=== PATIENT | female | born 1945 | race Caucasian/White ===

== ENCOUNTER 2018-12-20 19:31 | Inpatient (IN) | payer OTHER ==
[~2018-12-20] VITALS: Ht 160 cm; Wt 95.3 kg
[2018-12-20 19:40] VITALS: BP 155/59
[2018-12-20 20:00] LABS: ABSOLUTE NEUTROPHILS 13.1 thou/uL (1.4-8.2); BASOPHILS 0.8 % (0.0-2.0); EOSINOPHILS 2.5 % (0.0-3.0); HEMOGLOBIN 13.6 gm/dL (12.0-15.0); MCH 29.2 pg (26.0-34.0); MCHC 34.1 g/dL (28.0-37.0); MCV 85.7 fL (80.0-100.0); MONOCYTES 5.1 % (1.0-8.0); PLATELET COUNT 341 thou/uL (150-400); POLYS 77.6 % (36.0-66.0); RBC 4.67 mil/uL (4.20-5.00); RDW 14.3 % (10.5-14.5); WBC 16.9 thou/uL (4.0-11.0)
[2018-12-20 20:31] LABS: ANION GAP 9 mmol/L (7-16); BUN 16 mg/dL (7-18); CALCIUM 8.5 mg/dL (8.5-10.1); CHLORIDE 101 mmol/L (98-107); CO2 28 mmol/L (21-32); CREATININE 0.9 mg/dL (0.6-1.0); GLUCOSE 129 mg/dL (74-106); POTASSIUM 3.6 mmol/L (3.5-5.1); SODIUM 138 mmol/L (136-145)
[2018-12-20 20:40] LABS: ALBUMIN 3.1 g/dL (3.4-5.0); SGOT 20 U/L (15-37); SGPT 23 U/L (30-65); TOTAL BILIRUBIN 0.3 mg/dL (<0.1-1.0); TOTAL PROTEIN 6.8 g/dL (6.4-8.2); TROPONIN-I <0.06 ng/mL (<0.06)
[2018-12-20] MEDS ORDERED: SYNTHROID175 MCG PO (20:42)
[2018-12-20] MEDS ORDERED: PRINIVIL20 MG PO (20:43)
[2018-12-20] MEDS ORDERED: OMEPRAZOLE40 MG PO (20:43)
[2018-12-20] MEDS ORDERED: CYMBALTA30 MG PO (20:44)
[2018-12-20] MEDS ORDERED: TOPROL XL25 MG PO (20:44)
[2018-12-20] MEDS ORDERED: CARDIZEM30 MG PO (20:44)
[2018-12-20] MEDS ORDERED: MAXZIDE-25 MG1 EACH PO (20:45)
[2018-12-20] MEDS ORDERED: ALLOPURINOL 10100 M1 PO (20:45)
[2018-12-20] MEDS ORDERED: FENOFIBRATE160 MG PO (20:46)
[2018-12-20] MEDS ORDERED: MYRBETRIQ50 MG PO (20:46)
[2018-12-20] MEDS ORDERED: TRAMADOL 50 MG50 MG PO (20:47)
[2018-12-20] MEDS ORDERED: TYLENOL EXTRA500 MG PO (20:47)
[2018-12-20] MEDS ORDERED: FISH OIL 1,001000 M2 PO (20:48)
[2018-12-20] MEDS ORDERED: ASPIR 8181 MG PO (20:48)
[2018-12-20] MEDS ORDERED: TURMERIC500 M2 PO (20:50)
[2018-12-20] MEDS ORDERED: PRENATAL PLUS1 EAC5 PO (20:50)
[2018-12-20] MEDS ORDERED: ALLEGRA PO (20:51)
[2018-12-20] MEDS ORDERED: CINNAMON500 MG PO (20:51)
[2018-12-20 21:40] VITALS: BP 139/69
[2018-12-20 22:18] VITALS: BP 129/57
[2018-12-20 22:45] VITALS: BP 125/69
[2018-12-20 23:01] LABS: CHOLESTEROL 176 mg/dL (<200); HDL CHOLESTEROL 47 mg/dL (>40); LDL CHOLESTEROL 92 mg/dL (<100); TC:HDL 3.7 Ratio (Not establshd); TRIGLYCERIDE 185 mg/dL (<150); VLDL 37 mg/dL (<40)
[2018-12-20 23:02] LABS: SERUM ASSESSMENT Clear
[2018-12-21] VITALS: BP 114/51
[2018-12-21] MEDS ORDERED: CALCIUM 600 +1 EAC1 PO (00:21)
[2018-12-21 02:28] LABS: HEMOGLOBIN 12.6 gm/dL (12.0-15.0); MCH 27.7 pg (26.0-34.0); MCHC 32.2 g/dL (28.0-37.0); RBC 4.54 mil/uL (4.20-5.00); RDW 14.6 % (10.5-14.5); WBC 15.5 thou/uL (4.0-11.0)
[2018-12-21 02:36] LABS: ANION GAP 7 mmol/L (7-16); BUN 14 mg/dL (7-18); CALCIUM 8.7 mg/dL (8.5-10.1); CHLORIDE 101 mmol/L (98-107); CO2 29 mmol/L (21-32); CREATININE 0.8 mg/dL (0.6-1.0); GLUCOSE 110 mg/dL (74-106); POTASSIUM 3.6 mmol/L (3.5-5.1); SODIUM 137 mmol/L (136-145)
[2018-12-21 02:44] LABS: TROPONIN-I <0.06 ng/mL (<0.06)
[2018-12-21 03:52] VITALS: BP 113/60
--- NOTE | 2018-12-21 04:47 | NUR ---
PT. ARRIVED AT FLOOR AROUND 23:00; AOX4; C/O CHEST PAIN RADIATING TOWARD THE BACK; 08/30; VS WNL; ADMITION ASSESSMENT PERFORMED; ADMITION DOCUMENTATION COMPLETE; PRN PAIN MEDICATION GIVEN TWICE DURING THE NIGHT; AT 03:00 PT. C/O ABDOMEN PAIN; MEETING PLANNER CONTACTED; ORDERS RECEIVED; PRN MEDICATION GIVEN; C-PAP TO SLEEP; AMBULATES WITH A WALKER; INDEPENDENT; SITTING ON CHAIR AT 03:00; 2L O2 APPLIED; O2 SAT= 92; ASSESSMENT CHARGED; FOLLOWING POC; CONSULT REQUESTED DONE;
[2018-12-21 07:00] VITALS: BP 123/57
--- NOTE | 2018-12-21 08:03 | EKG ---
[place] [address] [employer] [place] [address] ELECTROCARDIOGRAM REPORT Name: CHALO NAYAKRIBinta LIRAAN Room #: 201-P 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
--- NOTE | 2018-12-21 09:21 | EKG ---
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 : 1945 Requested By: Chloe Marmolejo Order Number: [id number] MD: Sudeep Gallegos Measurements Intervals [place] Rate: 72 P: 52 MN: 166 QRS: -33 QRSD: 93 T: 43 QT: 400 QTc: 438 Interpretive Statements Sinus rhythm Left axis deviation No previous ECG available for comparison Electronically Signed On 12-21-2018 9:21:07 FIBERGLASS QUALITY TECHNICIAN by Sudeep Gallegos [email or web address] <ELECTRONICALLY SIGNED> By: Sudeep Gallegos MD, LOCATED WITHIN [facility] 12/21/18 0921 0650 0650 Sudeep Gallegos MD, FACC /EPI
--- NOTE | 2018-12-21 10:52 | 2DMMODE ---
[facility] [address] [facility] [place] [address] 2 D/M-MODE ECHOCARDIOGRAM Name: BROOK NAYAK LISANDRA Room #: 201-P ADM IN M.R.#: [id number] Admission: 12/20/18 Attend Phys: Gilles Aguirre MD Discharge: Date of : 47 Date of Service: 12/21/18 1052 Report #: [id number] THIS REPORT FOR: //name// APPROVED REPORT Study performed: 12/21/2018 08:51:47 EXAM: Comprehensive 2D, Doppler, and color-flow Echocardiogram Patient Location: Bedside Room #: 201 Status: routine BSA: 1.97 HR: 75 bpm BP: 113/60 mmHg Rhythm: NSR Other Information Study Quality: Adequate Indications Chest Pain Hypertension/HDD 2D Dimensions RVDd: 30.72 mm IVSd: 10.13 (7-11mm) LVOT Diam: 18.94 (18-24mm) LVDd: 44.95 mm PWd: 10.54 (7-11mm) Ascending Ao: 29.27 (22-36mm) LVDs: 29.96 (25-40mm) Aortic Root: 26.45 mm Volumes Left Atrial Volume (Systole) Single Plane 4CH: 41.53 mL Single Plane 2CH: 33.42 mL LA ESV Index: 22.00 mL/m2 Aortic Valve AoV Peak Sathya.: 1.26 m/s AO Peak Gr.: 6.36 mmHg LVOT Max P.43 mmHg LVOT Max V: 1.05 m/s LUKE Vmax: 2.35 cm2 Mitral Valve E/A Ratio: 0.8 MV Decel. Time: 289.60 ms MV E Max Sathya.: 0.88 m/s [facility] [address] [place] [address] 2 D/M-MODE ECHOCARDIOGRAM Name: BROOK NAYAK Room #: 201-[facility] IN ..#: [id number] Admission: 12/20/18 Attend Phys: Gilles Aguirre MD Discharge: Date of : 47 Date of Service: 12/21/18 1052 Report #: [id number] MV A Sathya.: 1.09 m/s MV PHT: 83.98 ms IVRT: 115.34 ms Pulmonary Valve PV Peak Sathya.: 0.85 m/s PV Peak Gr.: 2.89 mmHg Pulmonary Vein P Vein S: 0.31 m/s P Vein A: 0.29 m/s P Vein D: 0.23 m/s P Vein A Dur.: 115.3 msec P Vein S/D Ratio: 1.35 Left Ventricle The left ventricle is normal size. There is normal LV segmental wall motion. There is normal left ventricular wall thickness. The left ventricular systolic function is normal. The left ventricular ejection fraction is within the normal range. LVEF is 55-60%. Grade I - abnormal relaxation pattern. Right Ventricle The right ventricle is normal size. The right ventricular systolic function is normal. Atria The left atrium size is normal. The right atrium size is normal. Aortic Valve The aortic valve is normal in structure. No aortic regurgitation is present. There is no aortic valvular stenosis. Mitral Valve The mitral valve is normal in structure. There is no mitral valve regurgitation noted. No evidence of mitral valve stenosis. Tricuspid Valve The tricuspid valve is normal in structure. There is no tricuspid valve regurgitation noted. Pulmonic Valve The pulmonary valve is normal in structure. There is no pulmonic valvular regurgitation. [facility] [address] [place] [address] 2 D/M-MODE ECHOCARDIOGRAM Name: BROOK NAYAK Room #: 201-P [facility] IN M.R.#: [id number] Admission: 12/20/18 Attend Phys: Gilles Aguirre MD Discharge: Date of : 47 Date of Service: 12/21/18 1052 Report #: [id number] Great Vessels The aortic root is normal in size. IVC is not well visualized. Pericardium Small pericardial effusion. <Conclusion> The left ventricle is normal size. There is normal left ventricular wall thickness. The left ventricular systolic function is normal. Grade I - abnormal relaxation pattern. The right ventricle is normal size. The left atrium size is normal. The aortic valve is normal in structure. The mitral valve is normal in structure. There is no tricuspid valve regurgitation noted. Small pericardial effusion. <ELECTRONICALLY SIGNED> By: Christian Curtis MD 12/21/181051 51 51 Christian Curtis MD /INF
[2018-12-21 11:05] VITALS: BP 111/56
--- NOTE | 2018-12-21 12:10 | NUR ---
Case opened to follow for support and dc planning. [employer] visited with the pt at bedside. She is a&ox4 and reports recent loss of her mother and some family stress. She requests her son Mendoza and her dtr in law Shauna as her spokespersons. She was provided AD/DPOA information and will contact cm should she wish to complete it during her staff. She is normally indep and uses a cane for community ambulation. She lives alone in an apt and denies any dc planning needs. She has a cpap at home also. Her pcp is Dr. Vicky Monroy. Support provided. No cm interventions indicated at this time. The pt is having a stress test this afternoon.
[2018-12-21 16:45] VITALS: BP 120/63
--- NOTE | 2018-12-21 18:31 | NUR ---
ASSUMED CARE OF PATIENT AT 0700. PT/VITALS STABLE. COMPLAINS OF MIDSTERNAL PRESSURE RADIATING TO HER BACK WITH IS ALLEVIATED BY MORPHINE IV. TOLERATES ACTIVITY WELL. ASSESSMENTS CHARTED. PATIENT UNDERWENT ECHO AND NUC MED STRESS TEST WITHOUT ANY DIFFICULTY. NEGATIVE RESULTS OF STRESS TEST SENT IN MESSAGE FORM TO DR. DO. PATIENT IS RESTING COMFORTABLY IN BED.
[2018-12-21 19:50] VITALS: BP 137/67
--- NOTE | 2018-12-22 03:47 | NUR ---
ASSESSMENTS CHARTED. PT WENT TO XRAY TO HAVE A CT OF CHEST TO CHECK FOR PE. USING CPAP WHILE SLEEPING. USING CANE TO HELP WHILE AMBULATING. CHEST PAIN ENDED. PLAN OF CARE IS TO DETERMINE SOURCE OF CHEST PAIN.
[2018-12-22 04:17] LABS: HEMATOCRIT 37.5 % (37.0-47.0); MCH 27.9 pg (26.0-34.0); MCHC 32.1 g/dL (28.0-37.0); MCV 86.9 fL (80.0-100.0); RBC 4.31 mil/uL (4.20-5.00); RDW 14.9 % (10.5-14.5); WBC 14.5 thou/uL (4.0-11.0)
[2018-12-22 04:26] LABS: CALCIUM 8.8 mg/dL (8.5-10.1); CREATININE 0.9 mg/dL (0.6-1.0); MAGNESIUM 1.8 mg/dL (1.8-2.4); POTASSIUM 3.8 mmol/L (3.5-5.1)
[2018-12-22 04:45] VITALS: BP 146/66
[2018-12-22 06:50] LABS: FOLIC ACID 68.2 ng/mL (8.6-58.9)
[2018-12-22 07:10] VITALS: BP 128/52
[2018-12-22 11:10] VITALS: BP 131/71
[2018-12-22 14:59] VITALS: BP 131/71
[2018-12-22] MEDS ORDERED: LASIX 20 MG TAB20 MG PO (15:33)
--- NOTE | 2018-12-22 16:21 | NUR ---
ASSESSMENT CHARTED - MEDS PER JAN - NO CO'S OF PAIN OR NAUSEA. FLORIDALMA DIET AND FLUIDS. UP AD ANDREW IN ROOM. NO CO'S OF CHEST PAIN - PT HOME THIS AFTERNOON - INSTRCUTION RE HOME MEDS/ CARE AND FOLLOW UP GIVEN TO PATIENT STATED UNDERSTANDING OF INSTRUCTION GIVEN. PT WHEN GIVING INSTRUCTION STATED THAT THE DOCTOR WAS GOING TO WRITE A PRESCRIPTION FOR LASIX - MESSAGED AND HE STATED THAT WAS CORRECT - SAID HE WAS SENDING TO [facility] FOR PATIENT - PRESCRIPTION HAS NOT COME TO [facility] - DOC MESSAGED AGAIN NO RESSPONSE OF YET. PATIENT HAD TO LEAVE - LEFT WITHOUT PRESCRI[PTION SAID THEY WOULD BE BACK IN THE AM TO PICK IT UP. WILL LEAVE AT THE DESK WHEN IT ARRIVES .
== END 2018-12-22 16:04 | disposition home or self-care (01) | DRG 313 ==
LOC: ER 19:31 → 2N 21:23 → EROBS 21:23 → 2N 22:23
PROVIDERS: Nurse Practitioner Family; Student in an Organized Health Care Education/Training Program; ADMIT Hospitalist
DX: R07.89 Other chest pain (principal); I50.30 Unspecified diastolic (congestive) heart failure; E78.5 Hyperlipidemia, unspecified; M19.90 Unspecified osteoarthritis, unspecified site; M79.7 Fibromyalgia; M62.84 Sarcopenia; H91.90 Unspecified hearing loss, unspecified ear; M10.9 Gout, unspecified; G45.4 Transient global amnesia; I11.0 Hypertensive heart disease with heart failure; K21.9 Gastro-esophageal reflux disease without esophagitis; E03.9 Hypothyroidism, unspecified; G47.33 Obstructive sleep apnea (adult) (pediatric); E66.9 Obesity, unspecified; Z68.37 Body mass index [BMI] 37.0-37.9, adult; Z82.49 Family history of ischemic heart disease and other diseases of the circulatory system; Z90.49 Acquired absence of other specified parts of digestive tract; Z88.1 Allergy status to other antibiotic agents; Z98.42 Cataract extraction status, left eye; Z98.41 Cataract extraction status, right eye; Z90.710 Acquired absence of both cervix and uterus; Z79.82 Long term (current) use of aspirin; Z79.899 Other long term (current) drug therapy
CPT/HCPCS: 10081

== ENCOUNTER → 2020-01-14 | Outpatient (CLI) | payer OTHER ==
[~2020-01-14] MED LIST: ALLEGRA PO; ALLOPURINOL 10100 M1 PO; ASPIR 8181 MG PO; B COMPLEX-FOLI1 EACH PO; CALCIUM 600 +1 EAC1 PO; CARDIZEM30 MG PO; CINNAMON500 MG PO; CYMBALTA30 MG PO; DULOXETINE HCL20 MG PO; FENOFIBRATE160 MG PO; FISH OIL 1,001000 M2 PO; FISH OIL 1,4001 EACH PO; LASIX 20 MG TAB20 MG PO; MAGNESIUM500 MG PO; MAXZIDE-25 MG1 EACH PO; MYRBETRIQ50 MG PO; OMEPRAZOLE40 MG PO; PRENATAL PLUS1 EAC5 PO; PRINIVIL20 MG PO; SYNTHROID150 MCG PO; SYNTHROID175 MCG PO; TOPROL XL25 MG PO; TOPROL XL50 MG PO; TRAMADOL 50 MG50 MG PO; TURMERIC500 M2 PO; TYLENOL EXTRA500 MG PO; VITAMIN D35000 UNI2 PO; VIVISCAL PO
== END ==
LOC: SJCVC 15:23
DX: I21.29 ST elevation (STEMI) myocardial infarction involving other sites (principal); R94.31 Abnormal electrocardiogram [ECG] [EKG]; I11.0 Hypertensive heart disease with heart failure; I50.32 Chronic diastolic (congestive) heart failure; K21.9 Gastro-esophageal reflux disease without esophagitis; E03.9 Hypothyroidism, unspecified; G47.33 Obstructive sleep apnea (adult) (pediatric); Z90.49 Acquired absence of other specified parts of digestive tract; Z90.710 Acquired absence of both cervix and uterus; Z79.899 Other long term (current) drug therapy

== ENCOUNTER → 2020-07-16 | Outpatient (CLI) | payer OTHER | LOC: SJCVC 13:22 | PROVIDERS: ATTEND Internal Medicine Cardiovascular Disease | DX: I11.0 Hypertensive heart disease with heart failure (principal); I50.32 Chronic diastolic (congestive) heart failure; R60.9 Edema, unspecified; E78.5 Hyperlipidemia, unspecified ==

== ENCOUNTER → 2021-02-17 | Outpatient (CLI) | payer OTHER | LOC: SJCVCIMAG 01-22 08:46 | PROVIDERS: ATTEND Internal Medicine Cardiovascular Disease | DX: I08.1 Rheumatic disorders of both mitral and tricuspid valves (principal); I11.0 Hypertensive heart disease with heart failure; I50.32 Chronic diastolic (congestive) heart failure; R60.9 Edema, unspecified; E78.5 Hyperlipidemia, unspecified; Z88.1 Allergy status to other antibiotic agents; Z79.899 Other long term (current) drug therapy; M19.90 Unspecified osteoarthritis, unspecified site; K21.9 Gastro-esophageal reflux disease without esophagitis; E03.9 Hypothyroidism, unspecified; G47.33 Obstructive sleep apnea (adult) (pediatric); G45.4 Transient global amnesia; Z72.89 Other problems related to lifestyle; Z88.8 Allergy status to other drugs, medicaments and biological substances ==

== ENCOUNTER → 2021-09-29 | Outpatient (CLI) | payer OTHER | LOC: SJCVC 14:27 | PROVIDERS: ATTEND Internal Medicine Cardiovascular Disease | DX: R94.31 Abnormal electrocardiogram [ECG] [EKG] (principal); I50.32 Chronic diastolic (congestive) heart failure; I11.0 Hypertensive heart disease with heart failure; R60.9 Edema, unspecified; E78.5 Hyperlipidemia, unspecified; K21.9 Gastro-esophageal reflux disease without esophagitis; G47.33 Obstructive sleep apnea (adult) (pediatric); E03.9 Hypothyroidism, unspecified; I10 Essential (primary) hypertension; Z88.1 Allergy status to other antibiotic agents; Z88.8 Allergy status to other drugs, medicaments and biological substances; Z79.899 Other long term (current) drug therapy; Z72.89 Other problems related to lifestyle ==